=== PATIENT | female | born 1970 ===

== ENCOUNTER → 2018-02-28 21:28 | Outpatient (REF) | payer OTHER, SELFPAY ==
[2018-03-03 14:05] LABS: Sex Hormone Binding Globulin 59 nmol/L (17-124)
[2018-03-04 18:19] LABS: Dehydroepiandrosterone Sulfate 16 mcg/dL (19-231)
[2018-03-05 13:40] LABS: Testosterone Free 1.3 pg/mL (0.1-6.4); Testosterone Total 16 ng/dL (2-45)
[2018-03-06 14:06] LABS: Estrogen 307.7 pg/mL
== END ==
LOC: LAB 21:28
PROVIDERS: Visit Provider Naturopath
DX: R68.82 Decreased libido (principal); Z13.89 Encounter for screening for other disorder; R50.81 Fever presenting with conditions classified elsewhere; R63.5 Abnormal weight gain; D50.9 Iron deficiency anemia, unspecified
CPT/HCPCS: 82627; 82672; 84144; 84270; 84402; 84403

== ENCOUNTER → 2018-06-04 20:48 | Outpatient (REF) | payer OTHER, SELFPAY ==
[2018-06-04 22:16] LABS: Alanine Aminotransferase 28 IU/L (9-52); Albumin 4.2 g/dL (3.5-5.0); Albumin Globulin Ratio 1.1 (1.0-2.8); Alkaline Phosphatase 91 U/L (38-126); Aspartate Aminotransferase 27 IU/L (14-36); BUN Creatinine Ratio 21.4 (6-22); Bilirubin Total 0.6 mg/dL (0.2-1.3); Blood Urea Nitrogen 15 mg/dL (7-17); Calcium 9.2 mg/dL (8.4-10.2); Carbon Dioxide 29 mmol/L (22-32); Chloride 97 mmol/L (98-107); Estimated Glomerular Filt Rate > 60.0 mL/min (>60); Globulin 3.8 g/dL (1.7-4.1); Glucose 93 mg/dL (70-100); HEMOLYSIS < 15 (0-50); Potassium 4.2 mmol/L (3.4-5.1); Sodium 136 mmol/L (137-145)
[2018-06-04 22:24] LABS: Hemoglobin A1C% w Est Avg Glu 5.4 % (4.0-6.0)
== END ==
LOC: LAB 20:48
PROVIDERS: Visit Provider Naturopath
DX: R63.5 Abnormal weight gain (principal); I73.00 Raynaud's syndrome without gangrene; L71.9 Rosacea, unspecified
CPT/HCPCS: 36415; 80053; 83036